=== PATIENT | male | born 1975 | race Caucasian/White ===

== ENCOUNTER 2019-05-18 16:52 | Observation (INO) | payer SELFPAY ==
[~2019-05-18] VITALS: Ht 177.8 cm; Wt 90.7 kg
--- OUTSIDE RECORDS SUMMARY | 2019-05-18 16:54 | XMS REPORT | Continuity of Care Document ---
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 Role Phone [employer] Information [employer] Unavailable Unavailable Problems Problem Status Onset Date Classification Date Reported Comments Source Body mass index 30+ - obesity 03/05/2018 Diagnosis 03/05/2018 [facility] Smoker 03/05/2018 Diagnosis 03/05/2018 [facility] Headache 03/05/2018 Diagnosis 03/05/2018 [facility] Acute sinusitis 03/05/2018 Diagnosis 03/05/2018 [facility] Acute upper respiratory infection 03/05/2018 Diagnosis 03/05/2018 [facility] Medications Medication Details Route Status Patient Instructions Ordering Provider Order Date Source Alprazolam 0.5 MG Oral Tablet alprazolam 0.5 mg tablet TK 1 T PO BID PRF ANXIETY Active [facility] 24 HR Bupropion Hydrochloride 150 MG Extended Release Oral Tablet bupropion HCl XL 150 mg 24 hr tablet, extended release TAKE TWO (2) TABLET(S) BY MOUTH ONCE A DAY. Active [facility] Doxycycline Monohydrate 100 MG Oral Capsule doxycycline monohydrate 100 mg capsule Take 1 capsule twice a day by oral route as directed for 7 days. Active [facility] gabapentin 100 MG Oral Capsule gabapentin 100 mg capsule TAKE ONE (1) CAPSULE(S) BY MOUTH IN THE MORNING AND 1 CAPSULE AT BEDTIME. Active [facility] Hydrochlorothiazide 12.5 MG Oral Tablet hydrochlorothiazide 12.5 mg tablet TAKE ONE (1) TABLET(S) BY MOUTH ONCE A DAY. Active [facility] Paroxetine Hydrochloride 30 MG Oral Tablet paroxetine 30 mg tablet TAKE ONE (1) TABLET(S) BY MOUTH EVERY DAY. Active [facility] Propranolol Hydrochloride 20 MG Oral Tablet propranolol 20 mg tablet TAKE ONE (1) TABLET(S) BY MOUTH TWICE A DAY. Active [facility] benzonatate 100 MG Oral Capsule [Tessalon Perles] Tessalon Perles 100 mg capsule Take 1 capsule 3 times a day by oral route as needed for 10 days. Active [facility] Allergies, Adverse Reactions, Alerts No Known Medication Allergies Immunizations No Data Provided for This Section Results No Data Provided for This Section Pathology Reports No Data Provided for This Section Diagnostic Reports No Data Provided for This Section Consultation Notes No Data Provided for This Section Discharge Summaries No Data Provided for This Section History and Physicals No Data Provided for This Section Vital Signs Vital Sign Value Date Comments Source Diastolic (mm Hg) 80 03/05/2018 [facility] Height 70 03/05/2018 [facility] Systolic (mm Hg) 130 03/05/2018 [facility] Weight 215 03/05/2018 [facility] Encounters Location Location Details Encounter Type Encounter Number Reason For Visit Attending Provider ADM Date DC Date Status Source [place] - [facility] Lorraine Rodriguez, [employer]OLD: [address] [place] [address], Ph. [id number] Lorraine Rodriguez 03/05/2018 [facility] Procedures No Data Provided for This Section Assessment and Plan No Data Provided for This Section Plan of Care No Data Provided for This Section Social History Social History Date Source Smoking Status Current Every Day Smoker 03/05/2018 [facility] Family History No Data Provided for This Section Advance Directives No Data Provided for This Section Functional Status No Data Provided for This Section
--- OUTSIDE RECORDS SUMMARY | 2019-05-18 16:54 | XMS REPORT | Clinical Summary ---
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 09/11/2018 naproxen (NAPROSYN) 500 Take 1 tablet 20 tablet 0 MG tablet (500 mg 8 total) by mouth 2 (two) times a day as needed (pain) for up to 10 days. 09/04/2018 butalbital-acetaminophen- Take 1 tablet 12 tablet 0 caff (ESGIC) 50-325-40 mg by mouth 8 per tablet every 6 (six) hours as needed for headaches for up to 3 days. Active Problems Not on file Encounters Care Team Description Date Type Specialty Adi Connors MD Chest pain at rest (Primary Dx) 09/01/2018 Emergency Emergency Medicine after 05/17/2018 Social History Date Tobacco Use Types Packs/Day Years Used Never Smoker Smokeless Tobacco: Never Used Alcohol Use Drinks/Week oz/Week Comments No Sex Assigned at Date Recorded Not on file Industry Job Start Date Occupation Not on file Not on file Not on file Travel End Travel History Travel Start No recent travel history available. Last Filed Vital Signs Time Taken Vital Sign Reading 09/01/2018 10:33 AM CDT Blood Pressure 137/90 09/01/2018 10:33 AM CDT Pulse 81 - Temperature - 09/01/2018 9:15 AM CDT Respiratory Rate 17 09/01/2018 10:33 AM CDT Oxygen Saturation 95% - Inhaled Oxygen - Concentration 09/01/2018 8:45 AM CDT Weight 98.9 kg (218 lb) 09/01/2018 8:45 AM CDT Height 177.8 cm (5' 10") 09/01/2018 8:45 AM CDT Body Mass Index 31.28 Plan of Treatment Health Maintenance Due Date Last Done Comments INFLUENZA VACCINE 05/31/2019 Procedures Comments Procedure Name Priority Date/Time Associated Diagnosis XR CHEST 2 VW STAT 09/01/2018 9:58 AM CDT ESTIMATED GFR STAT 09/01/2018 9:05 AM CDT TROPONIN STAT 09/01/2018 9:05 AM CDT HEPATIC FUNCTION PANEL STAT 09/01/2018 9:05 AM CDT BASIC METABOLIC PANEL STAT 09/01/2018 9:05 AM CDT HC COMPLETE BLD COUNT STAT 09/01/2018 W/AUTO DIFF 9:05 AM CDT ECG ED PRELIMINARY Routine 09/01/2018 INTERPRETATION 8:49 AM CDT ECG 12-LEAD STAT 09/01/2018 8:42 AM CDT after 05/17/2018 Results * XR Chest 2 Vw (09/01/2018 9:58 AM CDT) Specimen Narrative Performed At EXAMINATION:XR CHEST 2 VW RADIANT CLINICAL HISTORY:chest pain COMPARISON:None FINDINGS: The heart size is normal. The mediastinum is unremarkable. The lungs are clear. Degenerative changes of the thoracic spine are present. IMPRESSION: There are no acute findings visualized. IMPRESSION: [id number] Procedure Note Hm Interface, Radiology Results Incoming - 09/01/2018 10:04 AM CDT EXAMINATION: XR CHEST 2 VW CLINICAL HISTORY: chest pain COMPARISON: None FINDINGS: The heart size is normal. The mediastinum is unremarkable. The lungs are clear. Degenerative changes of the thoracic spine are present. IMPRESSION: There are no acute findings visualized. IMPRESSION: [id number] Performing Organization Address City/State/Zipcode Phone Number [facility] [address] [place] [address] * Estimated GFR (09/01/2018 9:05 AM CDT) Estimated GFR 83 mL/min/1.73 m2 [facility] Comment: DEPART[facility] [place] PATHOLOGY AND rpretation GENOMIC MEDICINE >=90 Normal or high G2 60-89Mildly decreased V0l84-85 Mildly to moderately decreased K8x51-15 Moderately to severely decreased G4 15-29Severely decreased G5 <15Kidney failure The eGFR was calculated using the Chronic Kidney Disease Epidemiology Collaboration (CKD-EPI) equation. Interpretation is based on recommendations of the National Kidney Foundation-Kidney Disease Outcomes Quality Initiative (NKF-KDOQI) published in 2014. Specimen Plasma specimen Performing Organization Address City/[facility]/Zipcode Phone Number [address] [place] [address] PATHOLOGY AND [facility] * Troponin (09/01/2018 9:05 AM CDT) [facility] Troponin <0.300 0.000 - 0.300 ng/mL [facility] Comment: DEPARTMENT OF 0.30 - 1.49 PATHOLOGY AND ng/mlMay GENOMIC indicate increased risk of MEDICINE acute coronary syndrome. >=1.5 ng/ml Consistent with acute myocardial infarction. The diagnostic value of a single normal or non-diagnostic result is questionable.Serial samples at 2-6 hour intervals are required to rule out acute myocardial injury. Specimen Plasma specimen Performing Organization Address [facility] Phone Number [address] [place] [address] PATHOLOGY AND [facility] * CBC with platelet and differential (09/01/2018 9:05 AM CDT) [facility] WBC 6.37 4.50 - 11.00 k/uL [facility] DEPARTMENT OF PATHOLOGY AND GENOMIC MEDICINE RBC 5.61 4.40 - 6.00 m/uL [facility] DEPARTMENT OF PATHOLOGY AND GENOMIC MEDICINE HGB 16.2 14.0 - 18.0 g/dL [facility] DEPARTMENT OF PATHOLOGY AND GENOMIC MEDICINE HCT 44.5 41.0 - 51.0 % [facility] DEPARTMENT OF PATHOLOGY AND GENOMIC MEDICINE MCV 79.3 (L) 82.0 - 100.0 fL [facility] DEPARTMENT OF PATHOLOGY AND GENOMIC MEDICINE MCH 28.9 27.0 - 34.0 pg [facility] DEPARTMENT OF PATHOLOGY AND GENOMIC MEDICINE MCHC 36.4 31.0 - 37.0 g/dL [facility] DEPARTMENT OF PATHOLOGY AND GENOMIC MEDICINE RDW - SD 35.3 (L) 37.0 - 55.0 fL [facility] DEPARTMENT OF PATHOLOGY AND GENOMIC MEDICINE MPV 8.8 8.8 - 13.2 fL [facility] DEPARTMENT OF PATHOLOGY AND GENOMIC MEDICINE Platelet count 301 150 - 400 k/uL [facility] DEPARTMENT OF PATHOLOGY AND GENOMIC MEDICINE Nucleated RBC 0.00 /100 WBC [facility] DEPARTMENT OF PATHOLOGY AND GENOMIC MEDICINE Neutrophils 67.0 39.0 - 69.0 % [facility] DEPARTMENT OF PATHOLOGY AND GENOMIC MEDICINE Lymphocytes 19.5 (L) 25.0 - 45.0 % [facility] DEPARTMENT OF PATHOLOGY AND GENOMIC MEDICINE Monocytes 10.7 (H) 0.0 - 10.0 % [facility] DEPARTMENT OF PATHOLOGY AND GENOMIC MEDICINE Eosinophils 1.6 0.0 - 5.0 % [facility] DEPARTMENT OF PATHOLOGY AND GENOMIC MEDICINE Basophils 0.9 0.0 - 1.0 % [facility] DEPARTMENT OF PATHOLOGY AND GENOMIC MEDICINE Specimen Blood Performing Organization Address City/[facility] Phone Number [address] [place] [address] PATHOLOGY AND GENOMIC MEDICINE * Hepatic function panel (09/01/2018 9:05 AM CDT) [facility] Signature Albumin 4.9 3.5 - 5.0 g/dL [facility] DEPARTMENT OF PATHOLOGY AND GENOMIC MEDICINE Total bilirubin 0.4 0.0 - 1.2 mg/dL [facility] DEPARTMENT OF PATHOLOGY AND GENOMIC MEDICINE Bilirubin <0.1 0.0 - 0.3 mg/dL [facility] direct DEPARTMENT OF PATHOLOGY AND GENOMIC MEDICINE Alkaline 51 40 - 129 U/L [facility] phosphatase DEPARTMENT OF PATHOLOGY AND GENOMIC MEDICINE Protein 7.5 6.3 - 8.3 g/dL [facility] Comment: DEPARTMENT OF [place] PATHOLOGY AND 4.6-7.0 g/dL GENOMIC MEDICINE week 4.4-7.6 g/dL 7 months-1year 5.1-7.3 g/dL 1-2 years5.6-7 .5 g/dL >3 years6.0-8 .0 g/dL 18-150 6.3-8.3 g/dL ALT 56 (H) 5 - 50 U/L [facility] DEPARTMENT OF PATHOLOGY AND GENOMIC MEDICINE AST 49 10 - 50 U/L [facility] DEPARTMENT OF PATHOLOGY AND GENOMIC MEDICINE Specimen Plasma specimen Performing Organization Address City/[facility] Phone Number [address] [place] [address] PATHOLOGY AND GENOMIC MEDICINE * Basic metabolic panel (09/01/2018 9:05 AM CDT) Pathologist [facility] Sodium 128 (L) 135 - 148 mEq/L [facility] DEPARTMENT OF PATHOLOGY AND GENOMIC MEDICINE Potassium 3.5 3.5 - 5.0 mEq/L [facility] DEPARTMENT OF PATHOLOGY AND GENOMIC MEDICINE Chloride 85 (L) 98 - 112 mEq/L [facility] DEPARTMENT OF PATHOLOGY AND GENOMIC MEDICINE CO2 30 24 - 31 mEq/L [facility] DEPARTMENT OF PATHOLOGY AND GENOMIC MEDICINE Anion gap 13@ANIO 7 - 15 mEq/L [facility] DEPARTMENT OF PATHOLOGY AND GENOMIC MEDICINE BUN 8 6 - 20 mg/dL [facility] DEPARTMENT OF PATHOLOGY AND GENOMIC MEDICINE Creatinine 1.10 0.70 - 1.20 mg/dL [facility] DEPARTMENT OF PATHOLOGY AND GENOMIC MEDICINE Glucose 117 (H) 65 - 99 mg/dL [facility] DEPARTMENT OF PATHOLOGY AND GENOMIC MEDICINE Calcium 9.6 8.3 - 10.2 mg/dL [facility] DEPARTMENT OF PATHOLOGY AND GENOMIC MEDICINE Specimen Plasma specimen Performing Organization Address [facility] Phone Number [place] [address] [place] [address] PATHOLOGY [facility] GENOMIC MEDICINE * ECG ED Preliminary Interpretation - NOT AN ORDER (09/01/2018 8:49 AM CDT) Narrative Performed At Adi Connors MD 09/01/20182:57 PM ECG ED Preliminary Interpretation - Not an Order Performed by: ADI CONNORS Authorized by: ADI CONNORS ECG reviewed by ED Physician in the absence of a capsule machine operator: yes Previous ECG: Previous ECG:Unavailable Interpretation: Interpretation: normal Rate: ECG rate:77 ECG rate assessment: normal Rhythm: Rhythm: sinus rhythm Ectopy: Ectopy: none QRS: QRS axis:Normal Conduction: Conduction: normal ST segments: ST segments:Normal T waves: T waves: normal Comments: Read at 8:42 AM * ECG 12 lead (09/01/2018 8:42 AM CDT) Ventricular 77 [facility] rate Atrial rate 77 [facility] MA interval 166 [facility] QRSD interval 110 [facility] QT interval 360 [facility] QTC interval 407 [facility] P axis 1 55 [facility] QRS axis 1 4 [facility] T wave axis 36 [facility] EKG impression Normal sinus rhythm-Normal [facility] ECG-No previous ECGs available- Specimen Performing Organization Address City/State/Zipcode Phone Number [facility] [address] [place] [address] after 05/17/2018 Advance Directives Patient has advance care planning documents on file. For more information, pleas e contact: Shaggy Winston [address] [place] [address]
--- OUTSIDE RECORDS SUMMARY | 2019-05-18 16:54 | XMS REPORT | Encounter Summary ---
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 Acute upper respiratory infection upper respiratory infection (cold): care instructions Tessalon Perles 100 mg capsule 2. Acute sinusitis sinusitis: care instructions doxycycline monohydrate 100 mg capsule 3. Headache headache: care instructions 4. Smoker pneumococcal polysaccharide vaccine: what you need to know stopping smoking: care instructions Tdap (tetanus, diphtheria, pertussis) vaccine: what you need to know 5. Body mass index 30+ - obesity Discussion Note: None recorded. Plan of Care Reminders Provider Appointments None recorded. Lab None recorded. Referral None recorded. Procedures None recorded. Surgeries None recorded. Imaging None recorded. Medications Name Start Date alprazolam 0.5 mg tablet TK 1 T PO BID PRF ANXIETY bupropion HCl XL 150 mg 24 hr tablet, extended release TAKE TWO (2) TABLET(S) BY MOUTH ONCE A DAY. doxycycline monohydrate 100 mg capsule Take 1 capsule twice a day by oral route as directed for 7 days. gabapentin 100 mg capsule TAKE ONE (1) CAPSULE(S) BY MOUTH IN THE MORNING AND 1 CAPSULE AT BEDTIME. hydrochlorothiazide 12.5 mg tablet TAKE ONE (1) TABLET(S) BY MOUTH ONCE A DAY. paroxetine 30 mg tablet TAKE ONE (1) TABLET(S) BY MOUTH EVERY DAY. propranolol 20 mg tablet TAKE ONE (1) TABLET(S) BY MOUTH TWICE A DAY. Tessalon Perles 100 mg capsule Take 1 capsule 3 times a day by oral route as needed for 10 days. Medications Administered None recorded. Vitals Height Weight BMI Blood Pressure 5 ft 10 in 215 lbs 30.8 kg/m2 130/80 mm[Hg] Lab Results None recorded. Allergies Code Code System Name Reaction Severity Status Onset NKDA Problems None recorded. Procedures None recorded. Vaccine List None recorded. 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 History of Present Illness [id number] Reported By: Patient HPI: Location: head/sinuses. Quality: productive cough, colored phlegm, nasal/sinus congestion. Duration: 5days. Severity: severe. Onset/Timing: gradual. Context: no sick contacts, no foreign travel, non-smoker, allergies. Modifying factors: OTC medication. Associated Symptoms: no shortness of breath, no wheezing, no change in number of pillows needed to sleep at night, no sweats, no significant weight gain, no significant weight loss, no sore throat, no vomiting, no diarrhea, no rash, no nausea, no fever, no muscle aches, yellow-green, thick sputum, green sputum, morning cough, headache; sinus pressure Review of Systems:ROS as noted in the HPI Review of Systems None recorded. Physical Exam Adult Basic Reported By: Patient Constitutional: General Appearance: obese. Level of Distress: mild distress, moderate distress. Ambulation: ambulating normally Psychiatric: Mental Status: active and alert. Orientation: to time, to place, to person Avh-Rwce-Pxyjo-Throat: Nose: no lesions on external nose, nares patent, no septal deviation, nasal passages clear, sinus tenderness, nasal discharge--purulent. Lips, Teeth, and Gums: no mouth or lip ulcers, no bleeding gums, normal dentition. Oropharynx: moist mucous membranes, no exudates, tonsils not enlarged, erythema Neck: Neck: supple, FROM. Lymph Nodes: no cervical LAD Lungs: Respiratory effort: no dyspnea, no tachypnea, no use of accessory muscles, no intercostal retractions. Auscultation: breath sounds normal Cardiovascular: Heart Auscultation: RRR, no murmurs Musculoskeletal:: Motor Strength and Tone: normal motor strength, normal tone. Joints, Bones, and Muscles: normal movement of all extremities Neurologic: Gait and Station: normal gait, normal station. Sensation: grossly intact
[2019-05-18] MEDS ORDERED: ASPIRIN 81 MG CHEW TAB PO ONE ×2 (17:15→18:45)
[2019-05-18 17:25] LABS: BASOPHILS % 0.6 % (0.0-1.0); EOSINOPHILS # (AUTO) 0.2 (0.0-0.4); EOSINOPHILS % 2.9 % (0.0-6.0); HEMATOCRIT 38.1 % (38.2-49.6); HEMOGLOBIN 14.2 g/dL (14.0-18.0); LYMPHOCYTES # (AUTO) 1.1 (1.0-3.2); LYMPHOCYTES % 15.3 % (18.0-39.1); MEAN CORPUSCULAR HGB CONC 37.3 g/dL (31-35); MEAN CORPUSCULAR VOLUME 77.9 fL (81-99); MONOCYTES # (AUTO) 0.8 (0.2-0.8); MONOCYTES % 12.2 % (4.4-11.3); NEUTROPHILS # (AUTO) 4.7 (2.1-6.9); NEUTROPHILS % 68.4 % (38.7-80.0); PLATELET COUNT 235 x10e3/uL (140-360); RED BLOOD COUNT 4.89 x10e6/uL (4.3-5.7); RED CELL DISTRIBUTION WIDTH 11.5 % (11.7-14.4)
[2019-05-18 17:42] LABS: ALANINE AMINOTRANSFERASE 32 IU/L (0-55); ALBUMIN 4.1 g/dL (3.5-5.0); ALBUMIN/GLOBULIN RATIO 1.6 (0.8-2.0); ALKALINE PHOSPHATASE 56 IU/L (40-150); BLOOD UREA NITROGEN 10 mg/dL (7-26); BUN/CREATININE RATIO 12 (6-25); CALCIUM 8.7 mg/dL (8.4-10.2); CARBON DIOXIDE 30 mmol/L (22-29); CHLORIDE 79 mmol/L (98-107); CREATINE KINASE 359 IU/L (30-200); CREATININE, SERUM 0.85 mg/dL (0.72-1.25); EST GLOMERULAR FILTRATION RATE > 60 ML/MIN (60-); GLUCOSE 85 mg/dL (74-118)
[2019-05-18 17:43] LABS: SODIUM 119 mmol/L (136-145)
--- NOTE | 2019-05-18 17:57 | Diagnostic Imaging Report ---
EXAMINATION: CHEST SINGLE (NOT PORTABLE) INDICATION: Chest pain ^ERMD ORDER ^[id number] ^1740 ^Y COMPARISON: None FINDINGS: TUBES and LINES: None. LUNGS: Lungs are well inflated. Lungs are clear. There is no evidence of pneumonia or pulmonary edema. PLEURA: No pleural effusion or pneumothorax. HEART AND MEDIASTINUM: The cardiomediastinal silhouette is unremarkable. BONES AND SOFT TISSUES: No acute osseous lesion. Soft tissues are unremarkable. UPPER ABDOMEN: No free air under the diaphragm. IMPRESSION: No acute thoracic abnormality. Signed by: Dr. Jack Rodriguez M.D. on 05/18/2019 5:54 PM
[2019-05-18] MEDS ORDERED: LORAZEPAM 0.5 MG TAB PO NR (18:00)
[2019-05-18] MEDS ORDERED: SODIUM BICARBONATE 8.4% INJ 50 ML SYR IV NR (18:15)
[2019-05-18] MEDS ORDERED: SODIUM CHLORIDE 0.9% 1000ML 2,000 ML IV ONE (18:15)
[2019-05-18] MEDS ORDERED: SODIUM CHLORIDE 0.9% 1000ML 1,000 ML IV SCH (18:19)
[2019-05-18] MEDS ORDERED: LORAZEPAM INJ 2 MG/ML VIAL IV NR (18:30)
[2019-05-18] MEDS ORDERED: SODIUM CHLORIDE FLUSH 10 ML SYR INJ PRN (18:30)
[2019-05-18] MEDS ORDERED: NITROGLYCERIN 0.4 MG SUBL SL PRN (18:30)
--- OUTSIDE RECORDS SUMMARY | 2019-05-18 18:41 | XMS REPORT ---
Author Author [facility] Address Unknown Phone Unavailable Care Team Providers Care Business Support Liaison Name Role Phone Alo GRAF Unavailable Unavailable Problems This patient has no known problems. Allergies, Adverse Reactions, Alerts This patient has no known allergies or adverse reactions. Medications This patient has no known medications. Results Test Description Test Time Test Comments Text Results Atomic Results Result Comments CHEST SINGLE (NOT PORTABLE) 2019-05-18 17:52:00 [place] [address] Patient Name: ADENIKE RAUSCH MR #: [id number] : 1975 Age/Sex: 43/M Req #: [id number] Adm Physician: Ordered by: ROSA JUÁREZ NP Report #: [id number] Location: ER Room/Bed: Procedure: [id number] DX/CHEST SINGLE (NOT PORTABLE) Exam Date: 05/18/19 Exam Time: 0 REPORT STATUS: Signed EXAMINATION: CHEST SINGLE (NOT PORTABLE) INDICATION: Chest pain ERMD ORDER [id number] Y COMPARISON: None FINDINGS: TUBES and LINES: None. LUNGS: Lungs are well inflated. Lungs are clear. There is no evidence of pneumonia or pulmonary edema. PLEURA: No pleural effusion or pneumothorax. HEART AND MEDIASTINUM: The cardiomediastinal silhouette is unremarkable. BONES AND SOFT TISSUES: No acute osseous lesion. Soft tissues are unremarkable. UPPER ABDOMEN: No free air under the diaphragm. IMPRESSION: No acute thoracic abnormality. Signed by: Dr. Jack Rodriguez M.D. on 05/18/2019 5:54 PM Dictated By: JACK RODRIGUEZ MD, MD 53 Transcribed By: ABILIO on 05/18/191753 COPY TO: ROSA JUÁREZ NP
--- OUTSIDE RECORDS SUMMARY | 2019-05-18 18:41 | XMS REPORT | Clinical Summary ---
Author Author [facility] [employer] Organization [facility] Address Unknown Phone Unavailable Care Team Providers Care Dispensing Optician Name Role Phone Rikki Patrick DO PCP [...] There are no acute findings visualized. IMPRESSION: [id number] Procedure Note Hm Interface, Radiology Results Incoming - 09/01/2018 10:04 AM CDT EXAMINATION: XR CHEST 2 VW CLINICAL HISTORY: chest pain COMPARISON: None FINDINGS: The heart size is normal. The mediastinum is unremarkable. The lungs are clear. Degenerative changes of the thoracic spine are present. IMPRESSION: There are no acute findings visualized. IMPRESSION: [id number] Performing Organization Address City/State/Zipcode Phone Number [facility] [address] [place] [address] * Estimated GFR (09/01/2018 9:05 AM CDT) Estimated GFR 83 mL/min/1.73 m2 [facility] Comment: [facility] PATHOLOGY AND rpretation GENOMIC MEDICINE >=90 Normal or high G2 60-89Mildly decreased C4l35-89 Mildly to moderately decreased D3m56-80 Moderately to severely decreased G4 15-29Severely decreased G5 <15Kidney failure The eGFR was calculated using the Chronic Kidney Disease Epidemiology Collaboration (CKD-EPI) equation. Interpretation is based on recommendations of the National Kidney Foundation-Kidney Disease Outcomes Quality Initiative (NKF-KDOQI) published in 2014. Specimen Plasma specimen Performing Organization Address City/[facility]/Zipcode Phone Number [address] [place] [address] PATHOLOGY AND [facility] * Troponin (09/01/2018 9:05 AM CDT) [facility] Troponin <0.300 0.000 - 0.300 ng/mL [facility] Comment: DEPARTMENT OF 0.30 - 1.49 PATHOLOGY AND ng/mlMay GENOMIC indicate increased risk of MEDICINE acute coronary syndrome. >=1.5 ng/ml Consistent with acute myocardial infarction. The diagnostic value of a single normal or non-diagnostic result is questionable.Serial samples at 2-6 hour intervals are required to rule out acute myocardial injury. Specimen Plasma specimen Performing Organization Address [facility] Phone Number [address] [place] [address] PATHOLOGY AND [facility] * CBC with platelet and differential (09/01/2018 9:05 AM CDT) [facility] WBC 6.37 4.50 - 11.00 k/uL [facility] DEPARTMENT OF PATHOLOGY AND GENOMIC MEDICINE RBC 5.61 4.40 - 6.00 m/uL [facility] DEPARTMENT OF PATHOLOGY AND GENOMIC MEDICINE HGB 16.2 14.0 - 18.0 g/dL [facility] DEPARTMENT OF PATHOLOGY AND GENOMIC MEDICINE HCT 44.5 41.0 - 51.0 % [facility] DEPARTMENT OF PATHOLOGY AND GENOMIC MEDICINE MCV 79.3 (L) 82.0 - 100.0 fL [facility] DEPARTMENT OF PATHOLOGY AND GENOMIC MEDICINE MCH 28.9 27.0 - 34.0 pg [facility] DEPARTMENT OF PATHOLOGY AND GENOMIC MEDICINE MCHC 36.4 31.0 - 37.0 g/dL [facility] DEPARTMENT OF PATHOLOGY AND GENOMIC MEDICINE RDW - SD 35.3 (L) 37.0 - 55.0 fL [facility] DEPARTMENT OF PATHOLOGY AND GENOMIC MEDICINE MPV 8.8 8.8 - 13.2 fL [facility] DEPARTMENT OF PATHOLOGY AND GENOMIC MEDICINE Platelet count 301 150 - 400 k/uL [facility] DEPARTMENT OF PATHOLOGY AND GENOMIC MEDICINE Nucleated RBC 0.00 /100 WBC [facility] DEPARTMENT OF PATHOLOGY AND GENOMIC MEDICINE Neutrophils 67.0 39.0 - 69.0 % [facility] DEPARTMENT OF PATHOLOGY AND GENOMIC MEDICINE Lymphocytes 19.5 (L) 25.0 - 45.0 % [facility] DEPARTMENT OF PATHOLOGY AND GENOMIC MEDICINE Monocytes 10.7 (H) 0.0 - 10.0 % [facility] DEPARTMENT OF PATHOLOGY AND GENOMIC MEDICINE Eosinophils 1.6 0.0 - 5.0 % [facility] DEPARTMENT OF PATHOLOGY AND GENOMIC MEDICINE Basophils 0.9 0.0 - 1.0 % [facility] DEPARTMENT OF PATHOLOGY AND GENOMIC MEDICINE Specimen Blood Performing Organization Address City/[facility]ode Phone Number [address] [place] [address] PATHOLOGY AND GENOMIC MEDICINE * Hepatic function panel (09/01/2018 9:05 AM CDT) [facility] Signature Albumin 4.9 3.5 - 5.0 g/dL [facility] DEPARTMENT OF PATHOLOGY AND GENOMIC MEDICINE Total bilirubin 0.4 0.0 - 1.2 mg/dL [facility] DEPARTMENT OF PATHOLOGY AND GENOMIC MEDICINE Bilirubin <0.1 0.0 - 0.3 mg/dL [facility] direct DEPARTMENT OF PATHOLOGY AND GENOMIC MEDICINE Alkaline 51 40 - 129 U/L [facility] phosphatase DEPARTMENT OF PATHOLOGY AND GENOMIC MEDICINE Protein 7.5 6.3 - 8.3 g/dL [facility] Comment: DEPARTMENT OF [place] PATHOLOGY AND 4.6-7.0 g/dL GENOMIC MEDICINE week 4.4-7.6 g/dL 7 months-1year 5.1-7.3 g/dL 1-2 years5.6-7 .5 g/dL >3 years6.0-8 .0 g/dL 18-150 6.3-8.3 g/dL ALT 56 (H) 5 - 50 U/L [facility] DEPARTMENT OF PATHOLOGY AND GENOMIC MEDICINE AST 49 10 - 50 U/L [facility] DEPARTMENT OF PATHOLOGY AND GENOMIC MEDICINE Specimen Plasma specimen Performing Organization Address City/[facility]ode Phone Number [address] [place] [address] PATHOLOGY AND GENOMIC MEDICINE * Basic metabolic panel (09/01/2018 9:05 AM CDT) Pathologist [facility] Sodium 128 (L) 135 - 148 mEq/L [facility] DEPARTMENT OF PATHOLOGY AND GENOMIC MEDICINE Potassium 3.5 3.5 - 5.0 mEq/L [facility] DEPARTMENT OF PATHOLOGY AND GENOMIC MEDICINE Chloride 85 (L) 98 - 112 mEq/L [facility] DEPARTMENT OF PATHOLOGY AND GENOMIC MEDICINE CO2 30 24 - 31 mEq/L [facility] DEPARTMENT OF PATHOLOGY AND GENOMIC MEDICINE Anion gap 13@ANIO 7 - 15 mEq/L [facility] DEPARTMENT OF PATHOLOGY AND GENOMIC MEDICINE BUN 8 6 - 20 mg/dL [facility] DEPARTMENT OF PATHOLOGY AND GENOMIC MEDICINE Creatinine 1.10 0.70 - 1.20 mg/dL [facility] DEPARTMENT OF PATHOLOGY AND GENOMIC MEDICINE Glucose 117 (H) 65 - 99 mg/dL [facility] DEPARTMENT OF PATHOLOGY AND GENOMIC MEDICINE Calcium 9.6 8.3 - 10.2 mg/dL [facility] DEPARTMENT OF PATHOLOGY AND GENOMIC MEDICINE Specimen Plasma specimen Performing Organization Address [facility] Centercode Phone Number [place] [address] [place] [address] PATHOLOGY [facility] GENOMIC MEDICINE * ECG ED Preliminary Interpretation - NOT AN ORDER (09/01/2018 8:49 AM CDT) Narrative Performed At Adi Connors MD 09/01/20182:57 PM ECG ED Preliminary Interpretation - Not an Order Performed by: ADI CONNORS Authorized by: ADI CONNORS ECG reviewed by ED Physician in the absence of a shot examiner: yes Previous ECG: Previous ECG:Unavailable Interpretation: Interpretation: normal Rate: ECG rate:77 ECG rate assessment: normal Rhythm: Rhythm: sinus rhythm Ectopy: Ectopy: none QRS: QRS axis:Normal Conduction: Conduction: normal ST segments: ST segments:Normal T waves: T waves: normal Comments: Read at 8:42 AM * ECG 12 lead (09/01/2018 8:42 AM CDT) Ventricular 77 [facility] rate Atrial rate 77 [facility] MD interval 166 [facility] QRSD interval 110 [facility] QT interval 360 [facility] QTC interval 407 [facility] P axis 1 55 [facility] QRS axis 1 4 [facility] T wave axis 36 [facility] EKG impression Normal sinus rhythm-Normal [facility] ECG-No previous ECGs available- Specimen Performing Organization Address City/State/Zipcode Phone Number [facility] [address] [place] [address] after 05/17/2018 Advance Directives Patient has advance care planning documents on file. For more information, pleas e contact: Shaggy Winston [address] [place] [address]
--- OUTSIDE RECORDS SUMMARY | 2019-05-18 18:41 | XMS REPORT | Continuity of Care Document ---
Author Author [id number] Address Unknown Phone Unavailable Care Team Providers Care Director Corporate Sales Name Role Phone [employer] Unavailable Unavailable Problems Problem Status Onset Date [...] Date Status Source [place] - [facility] Lorraine Rodriguez, RAND CEMENTER: [address] [place] [address], Ph. [id number] Lorraine Rodriguez 03/05/2018 [facility] Procedures No Data [...]
[2019-05-18 18:44] LABS: MAGNESIUM 1.9 MG/DL (1.3-2.1); PHOSPHORUS 2.7 MG/DL (2.3-4.7)
[2019-05-18] MEDS: FAMOTIDINE 20 MG/2 ML VIAL IV SCH (19:09)
[2019-05-19] VITALS (11 sets, daily range): BP systolic 106–141; BP diastolic 70–96
[2019-05-19] MEDS ORDERED: LORAZEPAM INJ 2 MG/ML VIAL IV PRN
--- NOTE | 2019-05-19 00:01 | NUR ---
patient arrived to floor, receiving report at this time. urine not collected in ER. med rec not complete in ER. K 3.0 not replaced. ER nurse unable to confirm if STAT consult was called or not.
--- NOTE | 2019-05-19 00:05 | NUR ---
PAGED DR BROWN REGARDING STAT CONSULT PLACED DURING PREVIOUS SHIFT, AWAITING PAGE BACK AND ORDERS
--- NOTE | 2019-05-19 00:13 | NUR ---
call placed to dr. parker regarding stat consult. awaiting call back.
--- NOTE | 2019-05-19 00:22 | NUR ---
spoke with dr. parker, new orders received.
[2019-05-19] MEDS ORDERED: IMIPRAMINE HCL50 MG PO (01:27)
[2019-05-19] MEDS ORDERED: SEROQUEL25 MG PO (01:27)
[2019-05-19] MEDS ORDERED: NEXIUM20 MG PO (01:27)
[2019-05-19] MEDS ORDERED: OXCARBAZEPINE600 MG PO (01:27)
[2019-05-19] MEDS ORDERED: ULTRAM50 MG PO (01:27)
[2019-05-19] MEDS ORDERED: FLUOXETINE HCL20 MG PO (01:27)
[2019-05-19] MEDS ORDERED: LOSARTAN POTASS25 MG PO (01:27)
[2019-05-19] MEDS ORDERED: RITALIN20 MG PO (01:27)
[2019-05-19] MEDS ORDERED: trazodone PO (01:27)
[2019-05-19] MEDS ORDERED: ABILIFY5 MG PO (01:27)
[2019-05-19] MEDS ORDERED: METHOCARBAMOL750 MG PO (01:27)
[2019-05-19] MEDS ORDERED: ALPRAZOLAM ER1 MG PO (01:27)
[2019-05-19] MEDS ORDERED: HYDROCHLOROTH12.5 MG PO (01:27)
[2019-05-19 01:30] LABS: BLOOD UREA NITROGEN 8 mg/dL (7-26); CALCIUM 8.5 mg/dL (8.4-10.2); CARBON DIOXIDE 27 mmol/L (22-29); CHLORIDE 88 mmol/L (98-107); GLUCOSE 100 mg/dL (74-118); SODIUM 126 mmol/L (136-145)
[2019-05-19] MEDS ORDERED: POTASSIUM CHLORIDE 20 MEQ TAB CR PO STA (01:44)
[2019-05-19] MEDS ORDERED: SODIUM CHLORIDE 0.45% 1,000 ML IV SCH (01:45)
[2019-05-19 01:46] LABS: BUN/CREATININE RATIO 10 (6-25); CREATININE, SERUM 0.83 mg/dL (0.72-1.25); EST GLOMERULAR FILTRATION RATE > 60 ML/MIN (60-)
--- NOTE | 2019-05-19 01:47 | NUR ---
PER PREVIOUS ORDERS, CALLED DR. GONZALEZ WITH LABS. FLUIDS CHANGED. POTASSIUM ORDERED. ORDERS ENTERED AND IMPLEMENTED.
[2019-05-19 03:11] LABS: CREATINE KINASE MB 4.1 ng/mL (0-5.0)
[2019-05-19 03:27] LABS: ABG HCO3 31 mmol/L (23-28); ABG PCO2 50 mmHg (41-51); ABG PO2 91 mmHg (80-105)
[2019-05-19 06:35] LABS: ANION GAP 11.7 mmol/L (8-16); BLOOD UREA NITROGEN 10 mg/dL (7-26); BUN/CREATININE RATIO 12 (6-25); CALCIUM 8.5 mg/dL (8.4-10.2); CARBON DIOXIDE 29 mmol/L (22-29); CHLORIDE 92 mmol/L (98-107); CREATININE, SERUM 0.86 mg/dL (0.72-1.25); EST GLOMERULAR FILTRATION RATE > 60 ML/MIN (60-); GLUCOSE 88 mg/dL (74-118); POTASSIUM 3.7 mmol/L (3.5-5.1); SODIUM 129 mmol/L (136-145)
[2019-05-19 06:55] LABS: CALCIUM 8.5 mg/dL (8.4-10.2); CHOL/HDL RATIO 3.8 (3.9-4.7); MAGNESIUM 2.1 MG/DL (1.3-2.1); PHOSPHORUS 3.9 MG/DL (2.3-4.7)
[2019-05-19] MEDS: FAMOTIDINE 20 MG/2 ML VIAL IV SCH (06:56)
[2019-05-19] MEDS: DESMOPRESSIN ACETATE 4 MCG/ML VIAL IV SCH ×3 (08:34→18:00)
[2019-05-19] MEDS: DEXTROSE 5% 1,000 ML IV SCH ×2 (08:34→17:30)
--- NOTE | 2019-05-19 10:56 | Consultation ---
DATE OF CONSULTATION: 05/19/2019 Renal Consultation REASON FOR CONSULTATION: Hyponatremia. HISTORY OF PRESENT ILLNESS: A 43-year-old male with history of hypertension and anxiety, developed chest pain radiating to his left shoulder and upper back and presented to [facility]. The patient states that he was working outside as well as working out. He drank lots of caffeine. He felt he was having an anxiety attack. He states he has not drank in months, but because of the anxiety attack, he drank two beers to calm his nerves and drank copious amounts of water to try and flush his system. The patient also has taken hydrochlorothiazide and he doubled up on hydrochlorothiazide again to try and flush his system. His symptoms got progressively worse and he presented to the emergency room. When he arrived, he was found to have severe hyponatremia, hypokalemia, elevated ethanol level, was admitted and Nephrology consultation was called. The patient took his hydrochlorothiazide this morning from his personal supply as he was concerned about flushing his system again. The patient is alert and oriented. His fiancee is at his bedside and states his mental status is at baseline. REVIEW OF SYSTEMS: A complete 14-point review of systems was done. All systems negative other than mentioned in the HPI. PAST MEDICAL HISTORY: 1. Anxiety. 2. Hypertension. PAST SURGICAL HISTORY: None. SOCIAL HISTORY: Quit drinking two months ago. Positive tobacco. No IV drugs. FAMILY HISTORY: No family history of kidney disease. ALLERGIES: NO KNOWN DRUG ALLERGIES. CURRENT MEDICATIONS: See list. PHYSICAL EXAMINATION: VITAL SIGNS: Blood pressure 106/70, pulse 83, respiratory rate 18, temperature 96.4. GENERAL: No apparent distress. HEENT: Oropharynx clear. No scleral icterus. No peripheral edema. NECK: Supple. No elevation of jugular venous pressure. No lymphadenopathy. CHEST: Clear to auscultation anteriorly bilaterally. CARDIOVASCULAR: Regular rhythm. No murmurs or rubs. ABDOMEN: Soft. Positive bowel sounds. No tenderness. No rebound. EXTREMITIES: No edema. No clubbing. No cyanosis. SKIN: Warm. IMAGING: Chest x-ray clear. LABORATORY DATA: White count 6.9, hemoglobin 14.2, hematocrit 38.1, platelets 235. Sodium was 119 on admission, 126 at 1:00 a.m., 129 at 0600. Potassium 3.7, chloride 97, CO2 of 29, BUN 10, creatinine 0.86. Urine osmolality pending. Urine sodium 44. ASSESSMENT AND PLAN: 1. Acute hyponatremia, suspect secondary to polydipsia while being on hydrochlorothiazide. The patient received 2 L bolus in the emergency room and is autocorrecting his sodium despite being on half-normal saline when his sodium went to 126. The patient is started on D5W and DDAVP. We will try not to raise his sodium in this setting any faster than 12 millimoles/L per hour as the hyponatremia is acute. The patient should not be discharged on hydrochlorothiazide. This was explained to him and his fiancee at bedside. We will continue to check sodiums q.6 hours. 2. Euvolemic on exam. 3. Anxiety, improved. 4. Chest pain. Workup per Dr. Castillo. MD GRACE Ruffin/ANDREW /[id number]
[2019-05-19] MEDS ORDERED: TRAMADOL HCL 50 MG TAB PO PRN (12:00)
[2019-05-19] MEDS ORDERED: NON-FORMULARY MEDICATION (Methocarbamol 750 MG) PO PRN (12:00)
--- NOTE | 2019-05-19 12:00 | NUR ---
Dr. Anna barajas at this time. Spoke with patient. Continued home medications and discussed plan of care with patient.
[2019-05-19 12:45] LABS: CREATINE KINASE 238 IU/L (30-200)
--- NOTE | 2019-05-19 12:46 | NUR ---
Spoke with Dr. Rehman at this time. Sodium level is 129. He states to continue with course of treatment and call with the results of the sodium level at 1800.
--- NOTE | 2019-05-19 14:12 | History and Physical ---
CHIEF COMPLAINT: "My chest hurts." HISTORY OF PRESENT ILLNESS: This is a 43-year-old white man, who presents to [facility] with sudden onset of left-sided chest discomfort. The patient states that on day of admission, he began experiencing anxiety, which he feels triggered discomfort in left side of his chest. The first two sets of cardiac enzymes were normal. Total EKG in the emergency room did not reveal any acute ischemic changes. However, in the emergency room, he was found to have a sodium of 119. The patient states that on day of admission, he drank eight glasses of water with each glass being approximately 12 ounces of volume as well as two bottles of beer. The patient thought that by hydrating, he would be able to calm his anxiety. He also took an extra dose of hydrochlorothiazide. In the emergency room, he was found to have a sodium of 119, potassium of 3.0. The patient's BUN and creatinine were 10 and 0.85 respectively. The patient was admitted for further evaluation and treatment. The patient was also found to have a creatine kinase of 359. Repeat creatine kinase today was 371. The patient was admitted for further evaluation and treatment. REVIEW OF SYSTEMS: GENERAL: Weight is stable. No fever or chills, but he does have issues of anxiety. HEENT: No headaches. No vision changes. CARDIOVASCULAR/RESPIRATORY: The patient complained of chest wall discomfort on admission, but since resolved. He denied any chest tightness or shortness of breath. GI: No nausea associated with the chest discomfort. : No UTI or BPH. NEUROMUSCULAR: Complained of left-sided chest wall pain as well as anxiety yesterday, which prompted him to drink eight glasses of water and two bottles of beer. PAST MEDICAL HISTORY: 1. Depression. 2. Severe anxiety. 3. Hypertension. 4. GERD. FAMILY HISTORY: No family history of coronary artery disease. SOCIAL HISTORY: This man is . He states he lives with his fiancee. He does smoke tobacco in the form of cigarettes. The patient states that he does drink alcohol on a regular basis, but at times he binge alcohol drinks a quart of beer. On day of admission, he did drink two bottles of beer. 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 ALLERGIES: NO KNOWN DRUG ALLERGIES. SURGICAL HISTORY: None. MEDICATIONS: 1. Alprazolam 1 mg daily as needed for anxiety. 2. Abilify 5 mg daily. 3. Nexium 20 mg daily. 4. Fluoxetine 20 mg daily. 5. Hydrochlorothiazide 12.5 mg b.i.d. 6. Imipramine at 10 mg bedtime. 7. Losartan 50 mg daily. 8. Robaxin 750 mg twice a day as needed for pain. 9. Methylphenidate 20 mg b.i.d. 10. Trileptal 2400 mg at bedtime. 11. Seroquel 50 mg at bedtime. 12. Tramadol 50 mg b.i.d. p.r.n. pain. 13. Trazodone 50 mg at bedtime. PHYSICAL EXAMINATION: GENERAL: He is awake, alert, and fluent. He is in no distress. He has a muscular build. VITAL SIGNS: Height 5 feet 10 inches, weight 200 pounds, BMI 28. Blood pressure is 140/90, pulse 92, respiratory rate 18, temperature 96.5, and oxygen saturation 100% on room air. INTEGUMENT: Skin is warm and dry. No pallor, jaundice, or diaphoresis. HEENT: Anicteric sclerae. Moist mucous membranes. NECK: Supple. CARDIOVASCULAR: Tachycardic rate and regular rhythm. LUNGS: No rales. No rhonchi or wheezes. ABDOMEN: Benign. EXTREMITIES: No edema or deformity. NEUROLOGIC: Intact. DIAGNOSES: 1. Hyponatremia. 2. Hypokalemia. 3. Hypertensive heart disease. 4. Binge alcohol use. 5. Acute water intoxication. 6. Depression with severe anxiety. 7. Atypical chest pain, likely secondary to anxiety. 8. Rhabdomyolysis, mild. PLAN: 1. Highly recommend alcohol abstinence. 2. Reassurance. 3. We will follow electrolytes and renal function. 4. We will follow creatine kinase level since he may have a mild form of rhabdomyolysis. 5. Consult Nephrology. 6. Intravenous fluids as per Nephrology's recommendation. 7. We will hold hydrochlorothiazide as well as Robaxin. I spent 45 minutes in the care of this patient. The patient will most likely be discharged home tomorrow. MD SWATHI Patino/ANDREW /[id number] MTDD
[2019-05-19] MEDS: METHYLPHENIDATE HCL 10 MG TAB PO SCH (17:00)
[2019-05-19] MEDS: FAMOTIDINE 20 MG TAB PO SCH (17:10)
--- NOTE | 2019-05-19 18:39 | NUR ---
Notified Dr. Rehman of patient's sodium level of 127. New orders received to stop IV fluids and DDAVP. Orders implemented. Next sodium level to be drawn 05/20/19 0600.
[2019-05-19] MEDS ORDERED: MAGNESIUM/ALUMINUM/SIMETHICONE 30 ML UDC PO PRN (20:30)
--- NOTE | 2019-05-19 20:40 | NUR ---
patient c/o indigestion. Received telephone orders from Dr. valencia for DIVYA whitlock. orders entered and implemented.
[2019-05-19] MEDS ORDERED: IMIPRAMINE HCL 50 MG TAB PO SCH (21:00)
[2019-05-19] MEDS ORDERED: QUETIAPINE FUMARATE 25 MG TAB PO SCH (21:00)
[2019-05-20 05:43] VITALS: BP 137/93
[2019-05-20 05:49] LABS: BASOPHILS % 0.8 % (0.0-1.0); EOSINOPHILS # (AUTO) 0.1 (0.0-0.4); EOSINOPHILS % 1.1 % (0.0-6.0); HEMOGLOBIN 14.7 g/dL (14.0-18.0); LYMPHOCYTES # (AUTO) 1.2 (1.0-3.2); LYMPHOCYTES % 22.9 % (18.0-39.1); MEAN CORPUSCULAR HEMOGLOBIN 28.7 pg (28-32); MEAN CORPUSCULAR HGB CONC 35.9 g/dL (31-35); MEAN CORPUSCULAR VOLUME 79.9 fL (81-99); MONOCYTES # (AUTO) 0.7 (0.2-0.8); NEUTROPHILS # (AUTO) 3.3 (2.1-6.9); NEUTROPHILS % 61.6 % (38.7-80.0); PLATELET COUNT 236 x10e3/uL (140-360); RED BLOOD COUNT 5.13 x10e6/uL (4.3-5.7); RED CELL DISTRIBUTION WIDTH 11.6 % (11.7-14.4)
[2019-05-20] MEDS ORDERED: ALPRAZOLAM 1 MG TAB PO SCH (06:00)
--- NOTE | 2019-05-20 06:03 | NUR ---
patient rested through the night. no c/o pain. vss. remained in stable condition.
[2019-05-20 06:17] LABS: ALANINE AMINOTRANSFERASE 29 IU/L (0-55); ALBUMIN 3.7 g/dL (3.5-5.0); ALBUMIN/GLOBULIN RATIO 1.4 (0.8-2.0); ALKALINE PHOSPHATASE 58 IU/L (40-150); BLOOD UREA NITROGEN 10 mg/dL (7-26); BUN/CREATININE RATIO 10 (6-25); CALCIUM 8.9 mg/dL (8.4-10.2); CARBON DIOXIDE 32 mmol/L (22-29); CHLORIDE 88 mmol/L (98-107); CREATINE KINASE 155 IU/L (30-200); CREATININE, SERUM 0.96 mg/dL (0.72-1.25); EST GLOMERULAR FILTRATION RATE > 60 ML/MIN (60-); GLUCOSE 94 mg/dL (74-118); SODIUM 127 mmol/L (136-145)
--- NOTE | 2019-05-20 06:23 | NUR ---
notified Dr. Rehman of . cleared for discharge- f/u with Ori in 2 weeks. patient to discontinue HCTZ, and patient to be educated on 1.5 L fluid restriction.
--- NOTE | 2019-05-20 06:32 | NUR ---
educated patient on fluid restriction, provided cup with measurement. call placed to admit answering service for discharge orders, awaiting call back.
[2019-05-20] MEDS: FAMOTIDINE 20 MG TAB PO SCH (06:37)
--- NOTE | 2019-05-20 06:55 | NUR ---
spoke with dr. valencia, discharge orders received. patient to avoid alcohol, and maintain fluid restriction. will enter and implement.
--- NOTE | 2019-05-20 07:09 | NUR ---
report given to oncoming nurse, patient aaox4, stable condition, no distress.
[2019-05-20] MEDS ORDERED: PANTOPRAZOLE SOD 40 MG TABEC PO SCH (07:30)
[2019-05-20] MEDS: METHYLPHENIDATE HCL 10 MG TAB PO SCH (07:55)
[2019-05-20] MEDS ORDERED: FLUOXETINE HCL 20 MG CAP PO SCH (09:00)
[2019-05-20] MEDS ORDERED: LOSARTAN POTASSIUM 100 MG TAB PO SCH (09:00)
[2019-05-20] MEDS ORDERED: ARIPIPRAZOLE 5 MG TABLET PO SCH (09:00)
--- NOTE | 2019-05-20 11:23 | NUR ---
Dictated DC summary: [id number]
--- NOTE | 2019-05-20 12:11 | Discharge Summary ---
ADMIT DIAGNOSES: 1. Hyponatremia. 2. Atypical chest pain. 3. Hypokalemia. 4. Hypertensive heart disease. 5. Binge alcohol use. 6. Acute water intoxication. 7. Depression with severe anxiety. 8. Rhabdomyolysis, mild. DISCHARGE DIAGNOSES: 1. Hyponatremia, resolving. 2. Hypokalemia, resolved. 3. Atypical chest pain secondary to anxiety, resolved. 4. Hypertensive heart disease. 5. Binge alcohol use. 6. Acute water intoxication secondary to polydipsia, resolved. 7. Depression with severe anxiety. 8. Rhabdomyolysis, resolved. HOSPITAL COURSE: This is a 43-year-old white man, who is initially admitted to [facility] with diagnosis of hyponatremia, hypokalemia, and acute water intoxication. The patient also has history of binge alcohol drinking. Moreover, he has history of depression with severe anxiety disorder. The patient admits to drinking two bottles of beer on day of admission, followed by eight glasses of water because he was trying to "flush" the system. The patient also takes hydrochlorothiazide for blood pressure control and he took an extra dose on day of admission. On admission, the patient was found to have a sodium of 119; on day of discharge is 127. Also on admission, the patient's potassium was 3.0 and on day of discharge was 4.2. On day of discharge, the patient was adamant on being discharged home. The patient was seen by Nephrology during this hospitalization namely Dr. Jhoan Rehman for his hyponatremia. The barrel and receiver aligner felt that his hyponatremia was secondary to polydipsia and hydrochlorothiazide use as well as alcohol use. The patient's condition on discharge stable. His creatine kinase did get as high as 371 during hospitalization, but on day of discharge was 155. CONDITION ON DISCHARGE: Stable. DISCHARGE MEDICATIONS: 1. Alprazolam 1 mg daily as needed for anxiety. 2. Abilify 5 mg daily. 3. Nexium 20 mg daily. 4. Fluoxetine 20 mg daily. 5. Imipramine 10 mg at bedtime. 6. Losartan 50 mg daily. 7. Methylphenidate 20 mg b.i.d. 8. Trileptal 2400 mg at bedtime. 9. Seroquel 50 mg at bedtime. 10. Tramadol 50 mg b.i.d. 11. Trazodone 50 mg at bedtime. 12. The patient was told to hold hydrochlorothiazide and Robaxin until further notice. FOLLOWUP INSTRUCTIONS: The patient is instructed to follow up with Dr. Rikki Patrick within 1 week. The patient was told not drink more than four glasses of water a day with each glass being 8 ounces of volume. Absolute alcohol abstinence was recommended to the patient, also. MD SWATHI Patino/ANDREW /[id number] cc: DO Jhoan Disla MD MTDD
== END 2019-05-20 07:51 | disposition home or self-care (01) ==
LOC: ER 16:52 → ERHOLD 18:39 → MED/SURG 05-19 00:02
DX: E87.1 Hypo-osmolality and hyponatremia (principal); F32.9 Major depressive disorder, single episode, unspecified; F41.9 Anxiety disorder, unspecified; E87.6 Hypokalemia; E87.79 Other fluid overload; I11.9 Hypertensive heart disease without heart failure; F10.10 Alcohol abuse, uncomplicated; M62.82 Rhabdomyolysis
CPT/HCPCS: 36415 ×3; 36600; 71045; 80048; 80053 ×2; 80061; 80320; 82310; 82550 ×3; 82553 ×2; 82805; 83735 ×3; 83935; 84100 ×2; 84295; 84300; 84484 ×2; 85025 ×2; 93005; 99284; G0378 ×3; J7030; J7070